=== PATIENT | female | born 1990 | race Caucasian/White ===

== ENCOUNTER → 2023-01-10 | Outpatient (REF) | payer BC | LOC: M LAB REF 16:39 | PROVIDERS: ATTEND Physician Assistant | DX: J34.81 Nasal mucositis (ulcerative) (principal); R09.81 Nasal congestion ==

== ENCOUNTER → 2023-11-05 | Outpatient (CLI) | payer BC | LOC: M PLAIMG 10:52 | PROVIDERS: ATTEND Physician Assistant | DX: J32.8 Other chronic sinusitis (principal) ==